=== PATIENT | female | born 1985 | race Caucasian/White ===

== ENCOUNTER 2018-04-08 05:29 | Inpatient (IN) ==
[2018-04-08] MEDS ORDERED: FAMOTIDINE 20 MG/2 ML VIAL IV ONE (05:47)
[2018-04-08] MEDS ORDERED: CITRIC ACID/SODIUM CITRATE 30 ML UDCUP PO ONE (05:47)
[2018-04-08] MEDS ORDERED: ceFAZolin 2,000 MG in PREMIX 1 EACH IV ONE (05:47)
[2018-04-08] MEDS ORDERED: OXYTOCIN/LR 20 UNIT/1,000 ML BAG IV ONE ×2 (05:51→15:41)
[2018-04-08] MEDS ORDERED: LACTATED RINGERS 1,000 ML IV ONE (05:52)
[2018-04-08] MEDS: LACTATED RINGERS 1,000 ML IV SCH ×2 (06:10→19:25)
[2018-04-08 06:21] LABS: Basophils % 0.2 % (0.0-0.8); Eosinophils % 0.2 % (0.00-10.9); Hematocrit 31.5 VOL% (35.7-47.0); Hemoglobin 10.1 GM/DL (12.0-16.0); Immature Granulocytes % 0.7 %; Immature Granulocytes Absolute 0.08 #; Lymphocytes # 1.8 10*3/uL (1.4-4.0); Lymphocytes % 14.5 % (21.3-54.2); Mean Corpuscular HGB Conc 32.1 GM/DL (32-36); Mean Corpuscular Hemoglobin 28 PG (27-34); Mean Corpuscular Volume 87.5 FL (87-102); Mean Platelet Volume 10.2 FL (9.6-12.0); Monocytes # 0.8 10*3/uL (0.11-0.8); Monocytes % 6.9 % (1.7-12.7); Neutrophils # 9.5 10*3/uL (1.4-7.4); Neutrophils % 77.5 % (38.7-73.9); Platelet Count 268 T/CUMM (130-400); Red Cell Distribution Width 13.7 % (9.3-17.3); White Blood Count 12.2 T/CUMM (4-12)
[2018-04-08 06:31] LABS: INR 0.9; PT Patient Result 9.8 SECS; Partial Thromboplastin Time 26.8 SECS (0-40)
[2018-04-08 07:04] LABS: Alanine Aminotransferase 21 U/L (13-56); Albumin 2.5 G/DL (3.4-5.0); Alkaline Phosphatase 172 U/L (45-117); Aspartate Amino Transferase 14 U/L (0-37); Bilirubin,Total < 0.39 MG/DL (0.2-1.0); Blood Urea Nitrogen 6 MG/DL (7-18); Calcium 8.8 MG/DL (8.5-10.1); Glucose 87 MG/DL (74-106); Osmolality,Calculated 273.5 MOS/KG (273-304); Sodium 139 MMOL/L (136-145); Total Protein 7.1 G/DL (6.4-8.3)
[2018-04-08] MEDS ORDERED: ONDANSETRON 4 MG/2 ML VIAL ONE (10:36)
[2018-04-08] MEDS ORDERED: ONDANSETRON 4 MG/2 ML VIAL IV PRN ×2 (10:39→15:41)
[2018-04-08] MEDS ORDERED: CARBOPROST TROMETHAMINE 250 MCG/ML AMP IM ONE (11:51)
[2018-04-08] MEDS ORDERED: fentaNYL 100 MCG/2 ML VIAL ONE (12:03)
[2018-04-08] MEDS ORDERED: PHENYLEPHRINE 1 MG/10 ML SYRINGE IV ONE (12:03)
[2018-04-08] MEDS ORDERED: BUPIVACAINE SPINAL 0.75% 2 ML AMP SPINAL ONE (12:03)
[2018-04-08] MEDS ORDERED: MORPHINE 10 MG/10 ML VIAL ONE (12:03)
[2018-04-08] MEDS ORDERED: OXYTOCIN 10 UNIT/ML VIAL ONE (12:30)
[2018-04-08] MEDS ORDERED: ACETAMINOPHEN 1,000 MG/100 ML VIAL IV ONE (12:40)
[2018-04-08 12:51] LABS: Apearance,Urine CLEAR (Clear); Bacteria,Urine Occasional /HPF (Few); Bilirubin,Urine Negative (Negative); Blood, Urine Negative (Negative); Glucose,Urine (UA) Negative (Negative); Hyaline Casts,Urine 1 /LPF (0-3); Ketones,Urine 20 mg/dL (Negative); Mucus,Urine Occasional /LPF (Occasional); Nitrite,Urine Negative (Negative); Protein,Urine Negative; RBC,Urine 2 /HPF (0-4); Squamous Epithelial Cell,Urine Occasional /HPF (0-10); Urine Color Yellow (Yellow); Urine Specific Gravity 1.012 (1.001-1.035); Urine Urobilinogen < 2.0 EU/DL (0.2-1.0); WBC,Urine 1 /HPF (0-6)
[2018-04-08] MEDS ORDERED: diphenhydrAMINE 50 MG/1 ML VIAL IV PRN (15:24)
[2018-04-08] MEDS ORDERED: ACETAMINOPHEN 325 MG TABLET PO PRN (15:41)
[2018-04-08] MEDS ORDERED: SIMETHICONE CHEW 80 MG TABLET PO PRN (15:41)
[2018-04-08] MEDS ORDERED: RHO(D) IMMUNE GLOBULIN 300 MCG SYRINGE IM ONE (15:41)
[2018-04-08] MEDS ORDERED: HYDROmorphone 2 MG/1 ML VIAL IV PRN (15:56)
[2018-04-08] MEDS: IBUPROFEN 800 MG TABLET PO PRN (19:59)
[2018-04-08] MEDS ORDERED: SODIUM CHLORIDE 0.9% 100 ML IV ONE (20:51)
[2018-04-08] MEDS: ceFAZolin 1,000 MG in SYRINGE 1 EACH IV SCH (21:05)
[2018-04-08] MEDS: oxyCODONE/ACETAMINOPHEN 5-325 MG TABLET PO PRN (21:05)
[2018-04-08 21:08] LABS: Basophils % 0.1 % (0.0-0.8); Eosinophils # 0.1 10*3/uL (0.0-0.87); Eosinophils % 0.4 % (0.00-10.9); Hematocrit 27.1 VOL% (35.7-47.0); Hemoglobin 8.8 GM/DL (12.0-16.0); Immature Granulocytes % 0.6 %; Immature Granulocytes Absolute 0.08 #; Lymphocytes # 1.6 10*3/uL (1.4-4.0); Lymphocytes % 11.1 % (21.3-54.2); Mean Corpuscular HGB Conc 32.5 GM/DL (32-36); Mean Corpuscular Hemoglobin 28 PG (27-34); Mean Corpuscular Volume 85.8 FL (87-102); Mean Platelet Volume 10.1 FL (9.6-12.0); Monocytes # 0.9 10*3/uL (0.11-0.8); Monocytes % 6.1 % (1.7-12.7); Neutrophils # 11.6 10*3/uL (1.4-7.4); Neutrophils % 81.7 % (38.7-73.9); Platelet Count 222 T/CUMM (130-400); Red Blood Count 3.16 MC/CUMM (3.8-5.5); Red Cell Distribution Width 13.8 % (9.3-17.3); White Blood Count 14.2 T/CUMM (4-12)
[2018-04-08] MEDS: DOCUSATE SODIUM 100 MG CAPSULE PO SCH (21:10)
[2018-04-09] MEDS: LACTATED RINGERS 1,000 ML IV SCH ×4 (03:48→06:00)
[2018-04-09] MEDS: IBUPROFEN 800 MG TABLET PO PRN ×3 (04:29→22:11)
[2018-04-09] MEDS: ceFAZolin 1,000 MG in SYRINGE 1 EACH IV SCH (04:29)
[2018-04-09] MEDS: oxyCODONE/ACETAMINOPHEN 5-325 MG TABLET PO PRN ×5 (04:29→22:12)
[2018-04-09 07:28] LABS: Basophils % 0.2 % (0.0-0.8); Eosinophils # 0.1 10*3/uL (0.0-0.87); Eosinophils % 1.1 % (0.00-10.9); Hematocrit 27.1 VOL% (35.7-47.0); Hemoglobin 8.6 GM/DL (12.0-16.0); Immature Granulocytes % 0.8 %; Lymphocytes # 1.8 10*3/uL (1.4-4.0); Lymphocytes % 13.6 % (21.3-54.2); Mean Corpuscular HGB Conc 31.7 GM/DL (32-36); Mean Corpuscular Hemoglobin 28 PG (27-34); Mean Corpuscular Volume 88.6 FL (87-102); Mean Platelet Volume 10.3 FL (9.6-12.0); Monocytes # 0.9 10*3/uL (0.11-0.8); Monocytes % 7.1 % (1.7-12.7); Neutrophils # 10.1 10*3/uL (1.4-7.4); Neutrophils % 77.2 % (38.7-73.9); Platelet Count 223 T/CUMM (130-400); Red Blood Count 3.06 MC/CUMM (3.8-5.5); Red Cell Distribution Width 13.9 % (9.3-17.3); White Blood Count 13.1 T/CUMM (4-12)
[2018-04-09] MEDS: MULTIVITAMIN (PRENATAL) TABLET PO SCH (08:40)
[2018-04-09] MEDS: MAGNESIUM HYDROXIDE SUSP 30 ML UDCUP PO PRN ×2 (08:40→21:22)
[2018-04-09] MEDS: DOCUSATE SODIUM 100 MG CAPSULE PO SCH ×2 (08:43→21:22)
[2018-04-09] MEDS ORDERED: RHO(D) IMMUNE GLOBULIN 300 MCG SYRINGE IM ONE (12:00)
[2018-04-10] MEDS: IBUPROFEN 800 MG TABLET PO PRN ×2 (06:00→17:05)
[2018-04-10] MEDS: oxyCODONE/ACETAMINOPHEN 5-325 MG TABLET PO PRN ×4 (06:00→22:03)
[2018-04-10] MEDS: MULTIVITAMIN (PRENATAL) TABLET PO SCH (09:00)
[2018-04-10] MEDS: MAGNESIUM HYDROXIDE SUSP 30 ML UDCUP PO PRN (09:00)
[2018-04-10] MEDS: DOCUSATE SODIUM 100 MG CAPSULE PO SCH ×2 (09:00→22:02)
[2018-04-10] MEDS ORDERED: METHYLDOPA 250 MG TABLET ONE (21:57)
[2018-04-10] MEDS: POTASSIUM CHLORIDE 10 MEQ TABLET PO SCH (22:01)
[2018-04-10] MEDS: FUROSEMIDE 20 MG TABLET PO SCH (22:02)
[2018-04-11] MEDS: oxyCODONE/ACETAMINOPHEN 5-325 MG TABLET PO PRN ×2 (03:54→09:42)
[2018-04-11] MEDS: IBUPROFEN 800 MG TABLET PO PRN (03:54)
[2018-04-11] MEDS: METHYLDOPA 500 MG TABLET PO SCH ×2 (09:36→15:17)
[2018-04-11] MEDS: MAGNESIUM HYDROXIDE SUSP 30 ML UDCUP PO PRN (09:36)
[2018-04-11] MEDS: MULTIVITAMIN (PRENATAL) TABLET PO SCH (09:36)
[2018-04-11] MEDS: DOCUSATE SODIUM 100 MG CAPSULE PO SCH (09:37)
[2018-04-11] MEDS: FUROSEMIDE 20 MG TABLET PO SCH (09:37)
[2018-04-11] MEDS: POTASSIUM CHLORIDE 10 MEQ TABLET PO SCH (09:37)
[2018-04-11 15:47] VITALS: BP 159/86
[2018-04-11] MEDS ORDERED: MEASLES/MUMPS/RUBELLA VACCINE 0.5 ML VIAL SUBCUT ONE (16:27)
[2018-04-11] MEDS ORDERED: DIPH/TET/ACEL PERT BOOSTER VACCINE 0.5 ML VIAL IM ONE (16:28)
[2018-04-11] MEDS ORDERED: METHYLDOPA 500 MG TABLET PO SCH (21:20)
== END 2018-04-11 18:15 | disposition home or self-care (01) | DRG 766 ==
LOC: N.LDOUT 05:29 → N.LD 05:34 → N.OB 15:52
PROVIDERS: ADMIT Obstetrics & Gynecology; ATTEND Obstetrics & Gynecology